=== PATIENT | female | born 1990 | race Caucasian/White ===

== ENCOUNTER 2016-06-27 07:49 | Emergency (ER) | payer BC, MEDICAID ==
[2016-06-27 08:02] VITALS: BP 129/88
--- NOTE | 2016-06-27 08:10 | UC ---
Throat Pain/Nasal Joaquin HPI - HPI Summary HPI Summary: [address] AND PAIN WITH SWALLOWING. NO FEVER, CONGESTION, EAR PAIN, N/V/D. HAS MILD COUGH. - History of Current Complaint Chief Complaint: UC Stated Complaint: SORE THROAT Time Seen by Provider: 06/27/16 08:01 Hx Obtained From: Patient Hx Last Menstrual Period: 4 weeks ago Onset/Duration: Gradual Onset, Lasting Days, Still Present Severity: Mild Pain Intensity: 2 Pain Scale Used: 0-10 Numeric Associated Signs & Symptoms: Negative: Dysphagia, FB Sensation, Drooling, Wheezing, Hoarseness, Sinus Discomfort, Nasal Discharge, Fever, Vomiting, Rash - Allergies/Home Medications Allergies/Adverse Reactions: Allergies Allergy/AdvReac Type Severity Reaction Status Date / Time No Known Allergies Allergy Verified 02/19/16 16:11 PMH/Surg Hx/FS Hx/Imm Hx Previously Healthy: Yes Endocrine History Of: Denies: Diabetes Cardiovascular History Of: Denies: Cardiac Disorders, Hypertension Respiratory History Of: Denies: Asthma - Surgical History Surgical History: None - Family History Known Family History: Negative: Cardiac Disease, Hypertension, Diabetes - Social History Alcohol Use: Occasionally Alcohol Amount: 2 drinks once a week Substance Use Type: Marijuana Substance Use Comment - Amount & Last Used: few times a day Smoking Status (MU): Never Smoked Tobacco Have You Smoked in the Last Year: No - Immunization History Most Recent Influenza Vaccination: utd Review of Systems Constitutional: Negative ENT: Sore Throat Respiratory: Cough Cardiovascular: Negative Gastrointestinal: Negative All Other Systems Reviewed And Are Negative: Yes Physical Exam Triage Information Reviewed: Yes Appearance: Well-Appearing, No Pain Distress, Well-Nourished Vital Signs: Initial Vital Signs Temp 99.1 F 06/27/16 07:55 Pulse 78 06/27/16 07:55 Resp 18 06/27/16 07:55 BP 129/88 06/27/16 07:55 Pulse Ox 99 06/27/16 07:55 Vital Signs Reviewed: Yes Eyes: Positive: Conjunctiva Clear ENT: Positive: Hearing grossly normal, Pharyngeal erythema, TMs normal. Negative: Tonsillar swelling, Tonsillar exudate, Muffled/hoarse voice Neck: Positive: Supple, Nontender, No Lymphadenopathy Respiratory Exam: Normal Cardiovascular Exam: Normal Abdomen Description: Positive: Soft Musculoskeletal: Positive: No Edema Neurological: Positive: Alert Psychological: Positive: Age Appropriate Behavior Skin: Negative: rashes Diagnostics - Laboratory Diagnostic Studies Completed/Ordered: RAPID STREP NEGATIVE Throat Pain/Nasal Course/Dx - Differential Dx/Diagnosis Provider Diagnoses: ACUTE PHARYNGITIS Discharge - Discharge Plan Condition: Stable Disposition: HOME Patient Education Materials: Pharyngitis (ED) Referrals: No Primary Care Phys,NOPCP [Primary Care Provider] - Additional Instructions: RAPID STREP NEGATIVE. OTC CHLORASEPTIC OR CEPACOL LOZENGES FOR SORE THROAT NEEDED DO NOT SHARE FOOD, DRINK, UTENSILS CALL THE NUMBER BELOW FOR ASSISTANCE IN ESTABLISHING WITH A PCP An additional resource available to assist in finding the appropriate physician for your health care needs is the [facility] ([facility]). You may contact them by calling [phone].
== END 2016-06-27 09:00 | disposition home or self-care (01) ==
LOC: UCEAST 07:49
DX: J02.9 Acute pharyngitis, unspecified (principal)
CPT/HCPCS: 87651; 99212; G0463

== ENCOUNTER 2017-03-14 14:44 | Emergency (ER) | payer BC ==
--- NOTE | 2017-03-14 14:55 | UC ---
Lower Extremity/Ankle HPI - HPI Summary HPI Summary: 26 YEAR OLD FEMALE PRESENTS WITH COMPLAINS OF SORE THROAT. - History of Current Complaint Stated Complaint: THROAT PAIN Time Seen by Provider: 03/14/17 14:52 Hx Obtained From: Patient Hx Last Menstrual Period: 4 weeks ago Onset/Duration: Sudden Onset Severity Initially: Moderate Severity Currently: Moderate Pain Scale Used: 0-10 Numeric - 7 - Allergies/Home Medications Allergies/Adverse Reactions: Allergies Allergy/AdvReac Type Severity Reaction Status Date / Time No Known Allergies Allergy Verified 03/14/17 15:00 PMH/Surg Hx/FS Hx/Imm Hx Previously Healthy: Yes - Surgical History Surgical History: None - Family History Known Family History: Negative: Cardiac Disease, Hypertension, Diabetes - Social History Alcohol Use: Occasionally Alcohol Amount: 2 drinks once a week Substance Use Type: Marijuana Substance Use Comment - Amount & Last Used: few times a day Smoking Status (MU): Never Smoked Tobacco Have You Smoked in the Last Year: No - Immunization History Most Recent Influenza Vaccination: utd Review of Systems Constitutional: Negative Skin: Negative Eyes: Negative ENT: Sore Throat, Nasal Discharge Respiratory: Negative Cardiovascular: Negative Gastrointestinal: Negative Genitourinary: Negative Motor: Negative Neurovascular: Negative Musculoskeletal: Negative Neurological: Negative Psychological: Negative All Other Systems Reviewed And Are Negative: Yes Physical Exam Triage Information Reviewed: Yes Vital Signs Reviewed: Yes Eye Exam: Normal ENT Exam: Normal ENT: Positive: Pharyngeal erythema, Nasal congestion, Nasal drainage Dental Exam: Normal Neck exam: Normal Neck: Positive: 1 Respiratory Exam: Normal Cardiovascular Exam: Normal Abdominal Exam: Normal Musculoskeletal Exam: Normal Neurological Exam: Normal Psychological Exam: Normal Skin Exam: Normal Lower Extremity Course/Dx - Differential Dx/Diagnosis Provider Diagnoses: PHARYNGITIS Discharge - Discharge Plan Condition: Stable Disposition: HOME Prescriptions: Amoxicillin PO (*) [Amoxicillin 875 MG (*)] 875 mg PO BID #20 tab LoraTADine TAB(NF) [Claritin 10 MG TAB(NF)] 10 mg PO DAILY #30 tab Magic M W2 Ede/Maal/Nyst/Lido* 5 ml SWISH SPIT QID PRN #120 ml PRN Reason: Sore Throat Patient Education Materials: Pharyngitis (ED) Referrals: No Primary Care Phys,NOPCP [Primary Care Provider] -
[2017-03-14 14:59] VITALS: BP 120/83
== END 2017-03-14 15:31 | disposition home or self-care (01) ==
LOC: UCEAST 14:44
DX: J02.9 Acute pharyngitis, unspecified (principal); F12.90 Cannabis use, unspecified, uncomplicated
CPT/HCPCS: 87651; 99212; G0463

== ENCOUNTER 2017-03-19 18:54 | Emergency (ER) | payer BC ==
[2017-03-19 19:22] VITALS: BP 120/87
--- NOTE | 2017-03-19 20:12 | UC ---
Skin Complaint HPI - HPI Summary HPI Summary: onset of perioral rash 5 days after starting amox she has had this before her sore throat has resolved - History of Current Complaint Chief Complaint: UCRash Stated Complaint: RASH,ALLERGIC REACTION Hx Obtained From: Patient Hx Last Menstrual Period: 2 wks ago Onset/Duration: Sudden Onset, Lasting Hours Timing: Constant Onset Severity: Moderate Current Severity: Moderate Pain Intensity: 1 Pain Scale Used: 0-10 Numeric Location: Other - perioral Character: Pain - slight, Raised Aggravating Factor(s): Nothing Alleviating Factor(s): Nothing Associated Signs & Symptoms: Positive: Rash - Allergy/Home Medications Allergies/Adverse Reactions: Allergies Allergy/AdvReac Type Severity Reaction Status Date / Time No Known Allergies Allergy Verified 03/19/17 19:22 Review of Systems Constitutional: Negative Skin: Rash Eyes: Negative ENT: Negative Respiratory: Negative Cardiovascular: Negative Gastrointestinal: Negative Genitourinary: Negative Motor: Negative Neurovascular: Negative Musculoskeletal: Negative Neurological: Negative Psychological: Negative Is Patient Immunocompromised?: No All Other Systems Reviewed And Are Negative: Yes PMH/Surg Hx/FS Hx/Imm Hx Previously Healthy: Yes - Surgical History Surgical History: None - Family History Known Family History: Negative: Cardiac Disease, Hypertension, Diabetes - Social History Alcohol Use: Occasionally Alcohol Amount: 2 drinks once a week Substance Use Type: Marijuana Substance Use Comment - Amount & Last Used: few times a day Smoking Status (MU): Never Smoked Tobacco Have You Smoked in the Last Year: No - Immunization History Most Recent Influenza Vaccination: utd Physical Exam Triage Information Reviewed: Yes Appearance: Well-Appearing, No Pain Distress, Well-Nourished Vital Signs: Initial Vital Signs Temp 99.2 F 03/19/17 19:18 Pulse 86 03/19/17 19:18 Resp 12 03/19/17 19:18 BP 120/87 03/19/17 19:18 Pulse Ox 100 03/19/17 19:18 Vital Signs Reviewed: Yes Eyes: Positive: Conjunctiva Clear ENT: Positive: Hearing grossly normal. Negative: Nasal congestion, Nasal drainage, Trismus, Muffled/hoarse voice Neck: Positive: Supple, Nontender, No Lymphadenopathy Respiratory: Positive: Lungs clear, Normal breath sounds, No respiratory distress Cardiovascular: Positive: RRR, No Murmur Skin Exam: Other - multiple minute papule ellis oral region Course/Dx - Diagnoses Provider Diagnoses: perioral dermatitis Discharge - Discharge Plan Condition: Stable Disposition: HOME Prescriptions: DOXYcycline CAP(*) [DOXYcycline 100MG CAP(*)] 100 mg PO BID #14 cap Fluconazole 150 MG (NF) [Diflucan 150 mg (NF)] 150 mg PO ONCE #1 tab Patient Education Materials: Dermatitis (ED) Referrals: No Primary Care Phys,NOPCP [Primary Care Provider] - Additional Instructions: perioral dermatitis stop amox recheck for new or worsening symptoms
== END 2017-03-19 20:20 | disposition home or self-care (01) ==
LOC: UCEAST 18:54
DX: L71.0 Perioral dermatitis (principal); T36.0X5A Adverse effect of penicillins, initial encounter; F12.90 Cannabis use, unspecified, uncomplicated; X58.XXXA Exposure to other specified factors, initial encounter
CPT/HCPCS: 99201; G0463

== ENCOUNTER 2017-04-06 09:28 | Emergency (ER) | payer SELFPAY ==
[2017-04-06 09:56] VITALS: BP 141/77
[2017-04-06] MEDS ORDERED: Tetan/Diph/Pertus SYR(Tdap)* 0.5 ML SYR(BOOSTRIX) use SYR IM ONE (10:29)
--- NOTE | 2017-04-06 10:48 | UC ---
UC General HPI - HPI Summary HPI Summary: Patient presents with a primary complaint of healed finger abrasion that occurred while at work, and she does not know when her last tetanus was. She also reports a swollen right tonsil, and about two weeks ago she had to discontinue the antibiotic early because she developed a rash. She denies fever , chill,s dysphagia, abdominal pain associated with her symptoms. - History of Current Complaint Chief Complaint: UCGeneralIllness Stated Complaint: FINGER LACERATION Time Seen by Provider: 04/06/17 10:02 Hx Obtained From: Patient Hx Last Menstrual Period: 04/04/17 Onset/Duration: Gradual Onset, Lasting Days Timing: Constant Onset Severity: Mild Current Severity: Mild - Allergy/Home Medications Allergies/Adverse Reactions: Allergies Allergy/AdvReac Type Severity Reaction Status Date / Time Amoxicillin Allergy Hives Verified 04/06/17 09:41 PMH/Surg Hx/FS Hx/Imm Hx Previously Healthy: Yes - Surgical History Surgical History: None - Family History Known Family History: Negative: Cardiac Disease, Hypertension, Diabetes - Social History Occupation: Employed Full-time Lives: Alone Alcohol Use: Occasionally Alcohol Amount: 2 drinks once a week Substance Use Type: Marijuana Substance Use Comment - Amount & Last Used: few times a day Smoking Status (MU): Never Smoked Tobacco Have You Smoked in the Last Year: No - Immunization History Most Recent Influenza Vaccination: utd Review of Systems Constitutional: Negative Skin: Other - healed right index finger abrasion. Eyes: Negative ENT: Sore Throat Respiratory: Negative Cardiovascular: Negative Gastrointestinal: Negative Genitourinary: Negative Motor: Negative Neurovascular: Negative Musculoskeletal: Negative Neurological: Negative Psychological: Negative All Other Systems Reviewed And Are Negative: Yes Physical Exam Triage Information Reviewed: Yes Appearance: Well-Appearing Vital Signs: Initial Vital Signs Temp 98.3 F 04/06/17 09:42 Pulse 76 04/06/17 09:42 Resp 16 04/06/17 09:42 BP 141/77 04/06/17 09:42 Pulse Ox 100 04/06/17 09:42 Vital Signs Reviewed: Yes Eye Exam: Normal ENT Exam: Normal Neck exam: Normal Neck: Positive: 1 Respiratory Exam: Normal Cardiovascular Exam: Normal Abdominal Exam: Normal Musculoskeletal Exam: Normal Neurological Exam: Normal Psychological Exam: Normal Skin Exam: Normal Course/Dx - Course Course Of Treatment: Patient presents with an unremarkable past medical history. She cut her finger at work last week, it is currently healed, she was given a tetanus booster today. She also has recurrent tonstillitis and given RX zpak. She was other stable, and the discharged instruction were discussed and all questions wre answered. - Differential Dx - Multi-Symptom Differential Diagnoses: Other - tonsillitis tetanus booster abrashion Provider Diagnoses: tonsillitis. abrasion. tetanus booster Discharge - Discharge Plan Condition: Stable Disposition: HOME Prescriptions: Azithromycin TAB* [Zithromax TAB (Z-SUMAYA) 250 mg #6 tabs] 250 mg PO DAILY #6 tab Patient Education Materials: Diphtheria/Pertussis/Tetanus Vaccine (By injection ), Tonsillitis (ED), Finger Laceration (ED), Laceration Without Closure (ED) Referrals: No Primary Care Phys,NOPCP [Primary Care Provider] -
== END 2017-04-06 10:45 | disposition home or self-care (01) ==
LOC: UCEAST 09:28
DX: S60.419A Abrasion of unspecified finger, initial encounter (principal); J03.90 Acute tonsillitis, unspecified; W45.8XXA Other foreign body or object entering through skin, initial encounter; Y99.0 Civilian activity done for income or pay; Z23 Encounter for immunization; Z88.1 Allergy status to other antibiotic agents
CPT/HCPCS: 90471; 90715; 99212; G0463

== ENCOUNTER 2017-11-21 18:01 | Emergency (ER) | payer BC ==
[2017-11-21 18:30] VITALS: BP 136/84
--- NOTE | 2017-11-25 17:40 | UC ---
Marycarmen Gaona Emily, scribed for Naresh Cain MD on 11/21/17 at 1940 . Respiratory Complaint HPI - HPI Summary HPI Summary: This patient is a 27 year old F presenting to urgent care accompanied by friend with a chief complaint of R tonsil pain that began 1 week ago. The patient rates the pain 7/10 in severity. Symptoms aggravated by nothing. Symptoms alleviated by nothing. Patient reports fever, chills, R ear pain, nasal discharge, cough, and difficulty swallowing. Patient denies throat pain. Pt reports having similar symptoms previously. - History of Current Complaint Chief Complaint: UCRespiratory Stated Complaint: ST,SWOLLEN TONSIL Time Seen by Provider: 11/21/17 19:32 Hx Obtained From: Patient Hx Last Menstrual Period: 2 wks ago ?: No Onset/Duration: Sudden Onset, Lasting Weeks, Still Present Timing: Constant Severity Initially: Moderate Severity Currently: Moderate Pain Intensity: 7 Pain Scale Used: 0-10 Numeric Character: Cough: Nonproductive Aggravating Factors: Nothing Alleviating Factors: Nothing - Allergies/Home Medications Allergies/Adverse Reactions: Allergies Allergy/AdvReac Type Severity Reaction Status Date / Time amoxicillin Allergy Hives Verified 11/21/17 18:31 Home Medications: Home Medications Norgestrel-Ethinyl Estradiol [[id number] Tablet] 1 each PO 11/21/17 [ History] PMH/Surg Hx/FS Hx/Imm Hx Previously Healthy: Yes Endocrine History: Other Other Endocrine History: Negative diabetes Cardiovascular History: Other Other Cardiovascular History: Negative HTN - Surgical History Surgical History: None - Family History Known Family History: Negative: Cardiac Disease, Hypertension, Diabetes - Social History Occupation: Employed Full-time Lives: Alone Alcohol Use: Weekly Alcohol Amount: 2 drinks once a week Substance Use Type: Marijuana Substance Use Comment - Amount & Last Used: usually daily Smoking Status (MU): Never Smoked Tobacco Have You Smoked in the Last Year: No - Immunization History Most Recent Influenza Vaccination: utd Review of Systems Constitutional: Other - Negative fever and chills ENT: Ear Ache, Nasal Discharge, Other - Positive swollen tonsil and difficulty swallowing. Negative throat pain Respiratory: Cough All Other Systems Reviewed And Are Negative: Yes Physical Exam - Summary Physical Exam Summary: General: well-appearing, no pain distress Skin: warm, color reflects adequate perfusion, dry Head: normal Eyes: EOMI, LUIS ENT: Posterior pharynx is erythematous. The R tonsil is swollen in comparison to the L tonsil. Neck: supple, nontender. Positive posterior cervical lymphadenopathy. Respiratory: CTA, breath sounds present Cardiovascular: RRR Abdomen: soft, nontender Bowel: present Musculoskeletal: normal, strength/ROM intact Neurological: sensory/motor intact, A&O x3 Psychological: affect/mood appropriate Triage Information Reviewed: Yes Vital Signs: Initial Vital Signs Temp 98.1 F 11/21/17 18:26 Pulse 72 11/21/17 18:26 Resp 18 11/21/17 18:26 BP 136/84 11/21/17 18:26 Pulse Ox 100 11/21/17 18:26 Vital Signs Reviewed: Yes UC Diagnostic Evaluation - Laboratory O2 Sat by Pulse Oximetry: 100 Respiratory Course/Dx - Differential Dx/Diagnosis Provider Diagnoses: TONSILLITIS Discharge - Sign-Out/Discharge Documenting (check all that apply): Discharge/Admit/Transfer - Discharge Plan Condition: Stable Disposition: HOME Prescriptions: Azithromyxin MORRO (NF) [Z-Morro (Zithromax) 250 mg tabs #6] 2 tab PO .TODAY, THEN 1 DAILY #6 tab Fluconazole 150 MG (NF) [Diflucan 150 mg (NF)] 150 mg PO ONCE PRN #1 tab PRN Reason: Pain Patient Education Materials: Tonsillitis (ED) Referrals: Dayana HANSEN,Cherie Montejo [Primary Care Provider] - Additional Instructions: FOLLOW UP WITH YOUR DOCTOR IF NOT COMPLETELY IMPROVED. GET RECHECKED FOR ANY WORSENING OF YOUR CONDITION OR QUESTIONS OR CONCERNS. - Billing Disposition and Condition Condition: STABLE Disposition: HOME The documentation as recorded by the Marycarmen celeste Emily accurately reflects the service I personally performed and the decisions made by me, Naresh Cain MD.
== END 2017-11-21 19:45 | disposition home or self-care (01) ==
LOC: UCEAST 18:01
DX: J03.90 Acute tonsillitis, unspecified (principal); Z88.0 Allergy status to penicillin
CPT/HCPCS: 87651; 99212; G0463

== ENCOUNTER 2019-08-19 14:23 | Emergency (ER) | payer BC ==
[2019-08-19 15:33] VITALS: BP 130/84
--- NOTE | 2019-08-19 16:40 | UC ---
Eye Complaint HPI - HPI Summary HPI Summary: 29-year-old female presents with complaints of a red swollen "lump" to the inside of her left lower eyelid. States was initially mildly tender but has since subsided. She has been doing some warm moist compresses with no resolution in symptoms. Denies fever, chills, URI symptoms, visual disturbances , photophobia, eye redness, or eye drainage. - History of Current Complaint Chief Complaint: UCEye Stated Complaint: EYE ISSUE Time Seen by Provider: 08/19/19 15:56 Hx Obtained From: Patient Hx Last Menstrual Period: 08/02/19 Pain Intensity: 0 - Allergies/Home Medications Allergies/Adverse Reactions: Allergies Allergy/AdvReac Type Severity Reaction Status Date / Time amoxicillin Allergy Hives Verified 11/21/17 18:31 Penicillins Allergy Rash Verified 08/19/19 15:34 Home Medications: Home Medications Polymyx/Trimethoprim OPTH* [Polytrim OPHTH*] 1 drop LEFT EYE QID 7 Days #1 btl 08/19/19 [Rx] PMH/Surg Hx/FS Hx/Imm Hx Previously Healthy: Yes - Denies significant PMH - Surgical History Surgical History: None - Family History Known Family History: Positive: Non-Contributory - Social History Occupation: Employed Full-time Lives: Alone Alcohol Use: Weekly Alcohol Amount: 2 drinks once a week Substance Use Type: Marijuana Substance Use Comment - Amount & Last Used: usually daily Smoking Status (MU): Never Smoked Tobacco Have You Smoked in the Last Year: No - Immunization History Most Recent Influenza Vaccination: utd Review of Systems All Other Systems Reviewed And Are Negative: Yes Constitutional: Negative: Fever, Chills Eyes: Positive: Other - See HPI. Negative: Blurred Vision, Diplopia, Drainage, Eye Redness, Photophobia ENT: Positive: Negative Respiratory: Positive: Negative Cardiovascular: Positive: Negative Gastrointestinal: Positive: Negative Genitourinary: Positive: Negative Musculoskeletal: Positive: Negative Neurological/Mental Status: Positive: Negative Is Patient Immunocompromised?: No Physical Exam - Summary Physical Exam Summary: GENERAL APPEARANCE: Well developed, well nourished, alert and cooperative, and appears to be in no acute distress. EYES: Small area of erythema and edema to the inner lower left eyelid. No FB noted. Conjunctiva clear. No drainage. PERRL, EOM intact. Vision is grossly intact. CARDIAC: Normal S1 and S2. No S3, S4 or murmurs. Rhythm is regular. There is no peripheral edema, cyanosis or pallor. Extremities are warm and well perfused. Capillary refill is less than 2 seconds. Peripheral pulses intact. LUNGS: Clear to auscultation without rales, rhonchi, wheezing or diminished breath sounds. ABDOMEN: Positive bowel sounds. Soft, nondistended, nontender. No guarding or rebound. No masses or hepatosplenomegally. MUSKULOSKELETAL: ROM intact to all extremities. No joint erythema or tenderness. Normal muscular development. Normal gait. SKIN: Skin normal color, texture and turgor with no lesions or eruptions. Triage Information Reviewed: Yes Vital Signs: Initial Vital Signs Temp 98.6 F 08/19/19 15: Pulse 82 08/19/19 15: Resp 12 08/19/19 15: BP 130/84 08/19/19 15: Pulse Ox 97 08/19/19 15: Vital Signs Reviewed: Yes Eye Complaint Course/Dx - Course Course Of Treatment: 29-year-old female presents with complaints of a red swollen "lump" to the inside of her left lower eyelid. States was initially mildly tender but has since subsided. She has been doing some warm moist compresses with no resolution in symptoms. Denies fever, chills, URI symptoms, visual disturbances , photophobia, eye redness, or eye drainage. Afebrile. Vital signs stable. Patient had a small area of erythema and edema to the inner lower left eyelid consistent with an internal hordeolum vs chalazion. No FB noted. Conjunctiva clear. No drainage. PERRL, EOM intact. Vision is grossly intact. Discussed with the patient that considering the duration of her symptoms will start her on Polytrim ophthalmic drops 1 drop 4 times a day for 7 days. She is to continue to use the warm moist compresses. She should follow-up with ophthalmology in 3-5 days if symptoms persist. Respiratory tabs warning symptoms. The patient. Verbalizes understanding and agrees with plan of care. - Differential Dx/Diagnosis Differential Diagnosis/HQI/PQRI: Conjunctivitis, Foreign Body, Periorbital Cellulitis, Orbital Cellulitis, Other - Hordeolum, chalazion Provider Diagnosis: Internal hordeolum of left eye Discharge ED - Sign-Out/Discharge Documenting (check all that apply): Patient Departure All imaging exams completed and their final reports reviewed: No Studies - Discharge Plan Condition: Stable Disposition: HOME Prescriptions: Polymyx/Trimethoprim OPTH* [Polytrim OPHTH*] 1 drop LEFT EYE QID 7 Days #1 btl Patient Education Materials: Stye (ED) Referrals: No Primary Care Phys,NOPCP [Primary Care Provider] - Additional Instructions: Your exam is consistent with an internal hordeolum (stye) of the left lower eyelid. Considering the persistence of your symptoms we will start you on an antibiotic eye drop. Use Polytrim ophthalmic drops, Instill 1 drop into the affected eye 4 times a day for 7 days. Do warm moist compresses to the eye for 15 minutes 3-4 times a day. Follow up with ophthalmology in 3-5 days if no improvement in your symptoms. Call for an appointment. Seek immediate medical attention in the emergency room if he developed severe eye pain, loss of vision, visual disturbances, swelling of the eye, or any worsening of symptoms. - Billing Disposition and Condition Condition: STABLE Disposition: Home
== END 2019-08-19 17:03 | disposition home or self-care (01) ==
LOC: UCEAST 14:23
DX: H00.025 Hordeolum internum left lower eyelid (principal); Z88.0 Allergy status to penicillin
CPT/HCPCS: 99212; G0463